=== PATIENT | female | born 1965 | race Caucasian/White ===

== ENCOUNTER → 2021-01-23 | Outpatient (CLI) | payer OTHER ==
[~2021-01-23] MED LIST: ATOXIMETIN-B1 CAP PO; BUSPAR5 MG PO; DELTASONE10 MG PO; ESTRACE0.1 MG/GM V; PENTASA500 MG PO
== END | disposition home or self-care (01) ==
LOC: COVID19 16:00
PROVIDERS: ATTEND Internal Medicine
DX: Z11.52 Encounter for screening for COVID-19 (principal)

== ENCOUNTER 2022-07-18 09:56 | Emergency (ER) | payer OTHER ==
[~2022-07-18] VITALS: Ht 157.4 cm; Wt 59.0 kg
[~2022-07-18 09:56] MED LIST changes: +MACROBID100 M1 PO
[2022-07-18 11:40] LABS: BASO % 0.6 % (0.0-1.0); EOS # 0.2 10*3/uL (0.0-0.4); EOS % 2.5 % (1.0-4.0); HEMATOCRIT 44.3 % (37.0-47.0); LYMPH % 29.4 % (27.0-41.0); MEAN CELL VOLUME 89.9 fl (81.0-99.0); MEAN CORPUSCULAR HGB 28.6 pg (27.0-31.0); MEAN CORPUSCULAR HGB CONC 31.8 g/dl (33.0-37.0); MEAN PLATELET VOLUME 9.5 fl (9.6-12.3); MONO # 0.6 10*3/uL (0.1-1.0); MONO % 8.4 % (3.0-9.0); PLATELET COUNT AUTOMATED 295 10*3/uL (130-400); RED BLOOD COUNT 4.93 10*6/uL (4.10-5.10); RED CELL DISTRI WIDTH 13.2 % (0-14.5); WHITE BLOOD COUNT 6.8 10*3/uL (4.8-10.8)
[2022-07-18 11:52] LABS: ACT PARTIAL THROMBO TIME 27.2 SECONDS (20.0-32.1)
[2022-07-18 12:16] LABS: ALKALINE PHOSPHATASE 57 U/L (46-116); BUN 7 mg/dl (9-23); CHLORIDE 103 mmol/L (98-107); LIPASE 43 U/L (12-53); POTASSIUM 4.1 mmol/L (3.4-5.1); SGPT/ALT 16 U/L (10-49); TOTAL PROTEIN 7.8 gm/dL (6.0-8.0)
[2022-07-18 12:33] LABS: BILIRUBIN Negative (Negative); BLOOD Negative (Negative); CLARITY Clear (Clear); COLOR Yellow (Yellow); GLUCOSE Negative (Negative); KETONE Negative (Negative); LEUKO ESTERASE Negative (Negative); NITRITE Negative (Negative); SPECIFIC GRAVITY <= 1.005 (1.001-1.030); UROBILINOGEN 0.2 E.U./dl (0.0-1.0)
[2022-07-18 13:10] LABS: EPITHELIAL CELLS 0-2; WBC 0-2 wbc/hpf (0-5)
== END 2022-07-18 14:12 | disposition home or self-care (01) ==
LOC: ED 09:56
PROVIDERS: Emergency Medicine
DX: K50.90 Crohn's disease, unspecified, without complications (principal); J44.9 Chronic obstructive pulmonary disease, unspecified; F41.9 Anxiety disorder, unspecified; F32.A Depression, unspecified; Z90.710 Acquired absence of both cervix and uterus; Z98.890 Other specified postprocedural states